=== PATIENT | male | born 1960 | race African-American/Black ===

== ENCOUNTER 2018-08-12 08:18 | Emergency (ER) | payer OTHER ==
[~2018-08-12] VITALS: Ht 170.2 cm; Wt 113.4 kg
[2018-08-12 11:01] VITALS: BP 145/79
== END 2018-08-12 12:01 | disposition home or self-care (01) ==
LOC: ER 08:18
DX: M71.21 Synovial cyst of popliteal space [Baker], right knee (principal)
CPT/HCPCS: 93971